=== PATIENT | male | born 1960 | race African-American/Black ===

== ENCOUNTER 2017-05-02 18:04 | Emergency (ER) | payer MEDICAID, OTHER ==
[~2017-05-02] VITALS: Ht 170.2 cm; Wt 127.0 kg
[~2017-05-02 18:04] MED LIST: NIFEDICAL XL30 MG ORAL; NKM; NORCO 5-325 TA1 EACH ORAL
[2017-05-02] MEDS ORDERED: Ketorolac 30mg Inj IM ONE (19:00)
--- NOTE | 2017-05-02 19:04 | Emergency Room Report ---
History of Present Illness General Chief Complaint: Pain Source: Patient Present Illness HPI 56-year-old male, history of gout, presenting with left wrist pain for 2 days. States that he usually has gout, usually in his knees, however woke up with left wrist swelling and pain. No trauma. Hasn't taken allopurinol without relief. No other complaints Allergies: Coded Allergies: No Known Allergies (Unverified , 05/03/15) Patient History Past Medical History: see triage record Past Surgical History: none Pertinent Family History: none Reviewed Nursing Documentation: PMH: Agreed, PSxH: Agreed Nursing Documentation-PMH Past Medical History: No History, Except For Hx Hypertension: Yes Review of Systems All Other Systems: negative except mentioned in HPI Physical Exam Vital Signs Date Time Temp Pulse Resp B/P (MAP) Pulse Ox O2 Delivery O2 Flow Rate FiO2 05/02/17 18:31 98.3 94 16 125/97 96 Room Air 98.2 Sp02 EP Interpretation: reviewed, normal General Appearance: normal inspection, well appearing, no apparent distress, alert, GCS 15, non-toxic Head: normocephalic, atraumatic Eyes: bilateral eye normal inspection, bilateral eye PERRL, bilateral eye EOMI ENT: normal ENT inspection, normal pharynx, normal voice, moist mucus membranes Neck: normal inspection, full range of motion, supple Respiratory: normal inspection, lungs clear, normal breath sounds, no respiratory distress, no retraction, no wheezing, speaking full sentences, chest symmetrical Cardiovascular #1: normal inspection, regular rate, rhythm, no edema, normal capillary refill Cardiovascular #2: 2+ radial (R), 2+ radial (L) Gastrointestinal: normal inspection, non tender, soft, non-distended, no guarding Genitourinary: no CVA tenderness Musculoskeletal: other - Left wrist with mild edema, tender to palpation, with joint is not warm or no erythema, limited range of motion secondary to pain Neurologic: normal inspection, alert, oriented x3, responsive, motor strength/ tone normal, sensory intact, normal gait, speech normal Psychiatric: normal inspection, judgement/insight normal, memory normal Skin: normal inspection, normal color, no rash, warm/dry, well hydrated, normal turgor Medical Decision Making Diagnostic Impression: Primary Impression: Gout Additional Impression: Swelling of joint, wrist, left ER Course 56-year-old male with left wrist swelling and pain DDX: Gout Unlikely to be septic joint, wrist is not warm, has range of motion Plan: X-ray, pain control ER course: Patient has remained stable during ED stay. Disposition: Patient is to be discharged to home. Prescriptions given are indomethacin Patient is instructed to follow up with their primary care doctor within 5 days. Please note that this Emergency Department Report was dictated using [employer]iver[employer] machine tender technology software, occasionally this can lead to erroneous entry secondary to interpretation by the dictation equipment Xray: L wrist 3 view Indication: Pain EP Interpretation: Yes Interpretation: No dislocation, no soft tissue swelling, no fractures Impression: No acute disease Electronically signed by Alexis Mosqueda MD Last Vital Signs Date Time Temp Pulse Resp B/P (MAP) Pulse Ox O2 Delivery O2 Flow Rate FiO2 05/02/17 18:31 98.3 94 16 125/97 96 Room Air 98.2 Scripts Indomethacin (INDOMETHACIN) 25 Mg Capsule 25 MG PO Q8H, #20 CAP Prov: Alexis Mosqueda M.D. 05/02/17 Alexis Mosqueda M.D. May 02, 2017 19:04
[2017-05-02] MEDS ORDERED: INDOMETHACIN25 MG PO (19:09)
[2017-05-02 19:44] VITALS: BP 125/97
--- NOTE | 2017-05-03 10:59 | Diagnostic Imaging Report ---
Indication: Pain left wrist pain Findings: 3 views of the left wrist were obtained. No acute fractures, malalignment, erosions or periostitis are identified. Soft tissues are unremarkable. There is widening of the neck of the second metacarpal carpal and base of the first metacarpal. Findings could be on the basis of the sessile or broad-based osteochondromas. The hypertrophied bone could be on the basis of old fracture injury. Impression: No acute findings.
== END 2017-05-02 20:00 | disposition home or self-care (01) ==
LOC: EMR 19:54
DX: M10.9 Gout, unspecified (principal); M25.432 Effusion, left wrist; I10 Essential (primary) hypertension
CPT/HCPCS: 73110; 96372; 99283; J1885

== ENCOUNTER 2018-03-25 17:28 | Emergency (ER) | payer MEDICAID ==
[~2018-03-25] VITALS: Ht 170.2 cm; Wt 124.7 kg
[~2018-03-25 17:28] MED LIST changes: +INDOMETHACIN25 MG PO
--- NOTE | 2018-03-25 17:47 | NUR ---
ED Nurse Note: PT WALKED IN TO ER TODAY FROM HOME. AOX4. PT C/O LEFT ANKLE PAIN, 8/10 AT REST, AFTER TWISTING AT X THIS AM AROUND 1000. CIRCULATION AND SENSATION INTACT, CAP REFILL <3 SECONDS, 5/5 MUSCLE STRENGTH AND FULL ROM OF EXTREMITY AND DIGITS. SKIN CLEAN, DRY, AND INTACT.
--- NOTE | 2018-03-25 18:26 | Emergency Room Report ---
History of Present Illness General Chief Complaint: Lower Extremity Injury Source: Patient Present Illness HPI 57-year-old male with history of hypertension controlled and low back pain and left knee replacement here complaining of pain and swelling in left foot and ankle after the try to catch himself from falling going down the stairs today. Patient reports he was walking down the stairs she slipped and he presented himself from falling by putting his pressure on his left foot causing a twisting injury. He is localizing the pain to the left lateral foot rating at 10 out of 10 without radiation denying numbness and tingling. Patient has not taken any medication for pain. Denies pain in his left knee or any swelling or tenderness to scalp. Denies chest pain SOB palpation and all other associated symptoms. Patient is currently under pain management treatment and or so for his low back and knee and taking hydrocodone patient also has acute kidney injury and cannot take NSAIDs. Allergies: Coded Allergies: No Known Allergies (Unverified , 05/03/15) Patient History Past Medical History: see triage record Past Surgical History: other - knee replacement Pertinent Family History: none Immunizations: UTD Reviewed Nursing Documentation: PMH: Agreed; PSxH: Agreed Nursing Documentation-PMH Past Medical History: No History, Except For Hx Hypertension: Yes Review of Systems All Other Systems: negative except mentioned in HPI Physical Exam Vital Signs Date Time Temp Pulse Resp B/P (MAP) Pulse Ox O2 Delivery O2 Flow Rate FiO2 03/25/18 17:37 97.9 100 20 130/79 98 Room Air Sp02 EP Interpretation: reviewed, normal General Appearance: normal inspection, well appearing, no apparent distress, alert Head: normocephalic, atraumatic Eyes: bilateral eye normal inspection, bilateral eye PERRL ENT: normal ENT inspection, normal pharynx Neck: normal inspection, full range of motion, supple Respiratory: normal inspection, chest non-tender, no rhonchi, no wheezing Cardiovascular #1: normal inspection, no edema, no gallop, no murmur Cardiovascular #2: 2+ dorsalis pedis (R), 2+ dorsalis pedis (L) Gastrointestinal: normal inspection, non tender, soft Rectal: deferred Genitourinary: deferred Musculoskeletal: digits/nails normal, no calf tenderness, decreased range of motion - left foot, swelling - left foot, tender - left fifth metatarsal and eccymosis Neurologic: normal inspection, alert, oriented x3, responsive Psychiatric: normal inspection, judgement/insight normal Skin: normal inspection, normal color, no rash, warm/dry Lymphatic: normal inspection, no adenopathy Medical Decision Making PA Attestation all diagnoses and treatment plans were reviewed and discussed with my supervising physician Dr. Perez Diagnostic Impression: Primary Impression: Nondisplaced fracture of fifth left metatarsal bone ER Course 57-year-old male with history of hypertension controlled and low back pain and left knee replacement here complaining of pain and swelling in left foot and ankle after the try to catch himself from falling going down the stairs today. Patient reports he was walking down the stairs she slipped and he presented himself from falling by putting his pressure on his left foot causing a twisting injury. He is localizing the pain to the left lateral foot rating at 10 out of 10 without radiation denying numbness and tingling. Patient has not taken any medication for pain. Denies pain in his left knee or any swelling or tenderness to scalp. Denies chest pain SOB palpation and all other associated symptoms. Patient is currently under pain management treatment and or so for his low back and knee and taking hydrocodone patient also has acute kidney injury and cannot take NSAIDs. Ddx considered but are not limited to foot fracture, left foot contusion, left foot sprain Vital signs: are WNL, pt. is afebrile H&PE are most consistent with left foot fracture left fifth metatarsal ORDERS: ankle and left foot x-ray, Tylenol 500 ED INTERVENTIONS: left short leg splint And crutches DISCHARGE: At this time pt. is stable for d/c to home. Will provide printed patient care instructions, and any necessary prescriptions. Care plan and follow up instructions have been discussed with the patient prior to discharge. following or flank pain management for further assessment of left foot fracture Other X-Ray Diagnostic Results Other X-Ray Diagnostic Results : X-Ray ordered: left foot and ankle # of Views/Limited Vs Complete: 3 View Indication: Swelling EP Interpretation: Yes PA Xray: Interpretation reviewed, by supervising MD, and agrees with findings. Interpretation: other - fracture of left fifth metatarsal Electronically Signed by: taty Lehman PA-C Last Vital Signs Date Time Temp Pulse Resp B/P (MAP) Pulse Ox O2 Delivery O2 Flow Rate FiO2 03/25/18 17:37 97.9 100 20 130/79 98 Room Air Disposition: HOME, SELF-CARE Condition: Stable Scripts Acetaminophen* (TYLENOL EXTRA STRENGTH*) 500 Mg Tablet 500 MG ORAL Q8H PRN for Prn Headache/Temp > 101, #30 TAB 0 Refills Prov: Taty Hopkins 03/25/18 Patient Instructions: Avulsion Fracture of the Foot Additional Instructions: follow-up with ortho for further assessment of foot fracture, elevate leg use crutches keep the splint on until seen by ortho Taty Hopkins Mar 25, 2018 18:26
[2018-03-25] MEDS ORDERED: TYLENOL EXTRA500 MG ORAL (18:32)
[2018-03-25 19:11] VITALS: BP 128/82
--- NOTE | 2018-03-25 19:12 | NUR ---
ED Nurse Note: PT SITTING PEACEFULLY IN BED IN NAD. AOX4. PRESCRIPTIONS AND DISCHARGE PAPERWORK EXPLAINED TO PT. PT VERBALIZES UNDERSTANDING AND ALL QUESTIONS ANSWERED. PRESCRIPTIONS AND DISCHARGE PAPERWORK GIVEN TO PT AND ID WRISTBAND REMOVED. SHORT LEG SPLINT APPLIED. PT EDUCATED ON PROPER CRUTCHES USE. PT ABLE TO TEACH BACK. PT WALKED OUT OF ER WITH PROPER CRUTCH USE AND ALL BELONGINGS.
--- NOTE | 2018-03-26 09:33 | Diagnostic Imaging Report ---
Indication: Trauma, pain Technique: 3 views of the left ankle Comparison: none Findings: There is a transverse nondisplaced fracture of the base of the fifth metatarsal. No other acute fractures. No dislocations. There are small plantar spur. Impression: Positive for fifth metatarsal fracture This agrees with the findings reported by the emergency room physician in the electronic medical record
--- NOTE | 2018-03-26 09:43 | Diagnostic Imaging Report ---
Indication: Trauma, pain Technique: 3 views left foot Comparison: none Findings: There is a nondisplaced fracture the base of the fifth metatarsal. No other acute fractures. No dislocations. The joint spaces are preserved. Impression: Positive for fifth metatarsal base fracture This agrees with the findings reported by the emergency room physician in the electronic medical record
== END 2018-03-25 20:00 | disposition home or self-care (01) ==
LOC: EMR 19:50
DX: S92.355A Nondisplaced fracture of fifth metatarsal bone, left foot, initial encounter for closed fracture (principal); W10.9XXA Fall (on) (from) unspecified stairs and steps, initial encounter; Y92.009 Unspecified place in unspecified non-institutional (private) residence as the place of occurrence of the external cause; I10 Essential (primary) hypertension
CPT/HCPCS: 29515; 99283